=== PATIENT | female | born 1975 ===

== ENCOUNTER 2017-08-23 00:17 | Emergency (ER) | payer MEDICAID ==
[2017-08-23 00:17] VITALS: BMI 18.3
[2017-08-23 00:28] VITALS: RESP 20; O2SAT 98
[2017-08-23 01:54] LABS: RBC URINE 15 /hpf (0-3); URINE BACTERIA FEW (<OCC); URINE BILIRUBIN NEGATIVE (NEGATIVE); URINE COLOR Yellow (YELLOW); URINE GLUCOSE (UA) NORMAL (Normal); URINE KETONE NEGATIVE (NEGATIVE); URINE LEUKOCYTE ESTERASE 2+ Leu/uL (Negative); URINE PROTEIN NEGATIVE (NEGATIVE); URINE UROBILINOGEN NORMAL mg/dL (0.2-1.0); WBC URINE 19 /hpf (0-5)
[2017-08-23 01:55] LABS: URINE BLOOD 1+ (NEGATIVE)
[2017-08-23] MEDS ORDERED: Aluminum Hydroxide/Magnesium Hydroxide Susp (30 mL) PO STA (01:57)
[2017-08-23] MEDS ORDERED: Belladonna-Phenobarbital PO STA (01:57)
[2017-08-23] MEDS ORDERED: Lactated Ringer's 1,000 ML IV ONE (01:58)
--- NOTE | 2017-08-23 02:08 | C.PDOC ---
History Of Present Illness 41 year old female presents to the ER with a complaint of 3-4 hours of diffuse abdominal pain that is worse to the RUQ, associated with nausea and 2 episodes of yellow bilious vomiting. Denies fever or chills.no diarrhea. no recent previous episodes. Chief Complaint (Nursing): Abdominal Pain History Per: Patient History/Exam Limitations: no limitations Onset/Duration Of Symptoms: Hrs Current Symptoms Are (Timing): Still Present Severity: Moderate Pain Scale Rating Of: 4 Location Of Pain/Discomfort: Diffuse, RUQ (Greater) Radiation Of Pain To:: None Quality Of Discomfort: Unable To Describe Associated Symptoms: Nausea, Vomiting. denies: Fever, Chills Exacerbating Factors: None Alleviating Factors: None Recent travel outside of the [place]: No Abnormal Vaginal Bleeding: No Past Medical History Reviewed: Historical Data, Nursing Documentation, Vital Signs Vital Signs: Last Vital Signs Temp 97.7 F 08/23/17 03:39 Pulse 77 08/23/17 03:39 Resp 20 08/23/17 03:39 BP 98/61 L 08/23/17 03:39 Pulse Ox 98 08/23/17 04:00 - Medical History PMH: No Chronic Diseases Surgical History: No Surg Hx Family History: States: Unknown Family Hx - Social History Hx Tobacco Use: No Hx Alcohol Use: No Hx Substance Use: No - Immunization History Hx Tetanus Toxoid Vaccination: No Hx Influenza Vaccination: No Hx Pneumococcal Vaccination: No Review Of Systems Constitutional: Negative for: Fever, Chills, Weakness, Malaise, Weight loss ENT: Negative for: Ear Pain, Nose Congestion Cardiovascular: Negative for: Chest Pain, Palpitations, Edema, Light Headedness Respiratory: Negative for: Cough, Shortness of Breath, Hemoptysis, SOB with Excertion, Pleuritic Pain, Sputum Gastrointestinal: Positive for: Nausea, Vomiting, Abdominal Pain. Negative for : Diarrhea, Constipation, Melena, Hematochezia, Hematemesis Genitourinary: Negative for: Dysuria, Frequency, Incontinence, Hematuria, Vaginal Discharge, Vaginal Bleeding, Pelvic Pain Skin: Negative for: Rash Neurological: Negative for: Weakness, Confusion Physical Exam - Physical Exam Appears: Non-toxic, Other (Uncomfortable) Skin: Normal Color, Warm, Dry Head: Atraumatic, Normacephalic Eye(s): bilateral: Normal Inspection Ear(s): Bilateral: Normal Nose: Normal Oral Mucosa: Moist Tongue: Normal Appearing Lips: Normal Appearing Throat: Normal Neck: Normal Chest: Symmetrical, No Tenderness Cardiovascular: Rhythm Regular Respiratory: Normal Breath Sounds, No Rales, No Rhonchi, No Wheezing Gastrointestinal/Abdominal: Soft, Tenderness (RUQ), No Guarding, No Rebound Neurological/Psych: Oriented x3, Normal Speech ED Course And Treatment - Laboratory Results Result Diagrams: 08/23/17 02:08 08/23/17 02:08 O2 Sat by Pulse Oximetry: 98 (Room air) Pulse Ox Interpretation: Normal Medical Decision Making Medical Decision Making: Plan: * CMP * Lipase * CBC * Obstructive series * Upreg * UA * * lactated ringers * Maalox * Morphine * Protonix * Toradol * Zofran * * * on re-exam pt feels much better. Bedisde us of the gall bladder is unremarkable/ normal wall and no stones/ non tender. * obstructive series - non specific bowel gas pattern. Pt will be treated for a uti. Disposition Doctor Will See Patient In The: Office Counseled Patient/Family Regarding: Diagnosis - Disposition Disposition: HOME/ ROUTINE Disposition Time: 03:56 Condition: STABLE Prescriptions: Nitrofurantoin Macrocrystals [Macrobid] 100 mg PO BID 3 Days #6 cap Instructions: Acute Abdominal Pain (ED) Forms: [facility] (Malawian), Work Excuse - Clinical Impression Clinical Impression: Abdominal pain, UTI (urinary tract infection) - Scribe Statement The provider has reviewed the documentation as recorded by the Scribe Leonard Monroe All medical record entries made by the Scribe were at my direction and personally dictated by me. I have reviewed the chart and agree that the record accurately reflects my personal performance of the history, physical exam, medical decision making, and the department course for this patient. I have also personally directed, reviewed, and agree with the discharge instructions and disposition.
[2017-08-23 02:10] LABS: BASO % 0.3 % (0.0-2.0); EOS # 0.1 K/uL (0.0-0.7); EOS % 0.5 % (0.0-4.0); HEMATOCRIT 36.4 % (34.0-47.0); LYMPH # 2.4 K/uL (1.0-4.3); LYMPH % 22.8 % (20.0-40.0); MEAN CELL VOLUME 85.8 fL (81.0-99.0); MEAN CORPUSCULAR HEMOGLOBIN 28.6 pg (27.0-31.0); MEAN CORPUSCULAR HGB CONC 33.4 g/dL (33.0-37.0); MEAN PLATELET VOLUME 8.6 fL (7.2-11.7); MONO # 0.6 K/uL (0.0-0.8); MONO % 5.6 % (0.0-10.0); RED CELL DISTRIBUTION WIDTH 12.6 % (11.5-14.5); WHITE BLOOD COUNT 10.7 K/uL (4.8-10.8)
[2017-08-23] MEDS ORDERED: Belladonna-Phenobarbital ONE (02:14)
[2017-08-23] MEDS ORDERED: Morphine 4 MG/ML VIAL ONE (02:14)
[2017-08-23] MEDS ORDERED: Aluminum Hydroxide/Magnesium Hydroxide Susp (30 mL) ONE (02:14)
[2017-08-23 02:24] LABS: BILIRUBIN,TOTAL 0.4 mg/dL (0.2-1.3); CALCIUM 8.4 mg/dl (8.6-10.4); GFR AFRICAN-AMERICAN > 60; GLUCOSE,RANDOM 104 mg/dL (65-105); TOTAL PROTEIN 8.2 g/dL (6.3-8.3)
[2017-08-23 02:25] LABS: ALKALINE PHOSPHATASE 38 U/L (38-126); ALT/SGPT 44 U/L (9-52); AST/SGOT 25 U/L (14-36); BLOOD UREA NITROGEN 10 mg/dL (7-17); CARBON DIOXIDE 23 mmol/L (22-30); CHLORIDE 105 mmol/L (98-107); SODIUM 138 mmol/L (132-148)
[2017-08-23 03:40] VITALS: BP 98/61; PULSE 77; TEMP 97.7
--- NOTE | 2017-08-23 08:48 | RAD ---
PROCEDURE: Radiographs of the chest and abdomen (obstructive series) HISTORY: abd pain COMPARISON: No prior. TECHNIQUE: AP radiograph of the chest, with upright and supine radiographs of the abdomen. FINDINGS: CHEST: Lungs: Clear. Cardiovascular: Normal size heart. No pulmonary vascular congestion. Pleura: No pleural fluid. No pneumothorax. Other findings: None. ABDOMEN AND PELVIS: Bowel: Few small air fluid levels within nondilated large and small bowel loops -nonspecific. No evidence of mechanical obstruction. Free air: None. Bones: Unremarkable. Other findings: None. IMPRESSION: Unremarkable radiographs of chest . No evidence of mechanical bowel obstruction. Few small air fluid levels within nondilated large and small bowel loops -nonspecific.
== END 2017-08-23 04:14 | disposition home or self-care (01) ==
LOC: C.ER 00:17
DX: N39.0 Urinary tract infection, site not specified (principal); R10.11 Right upper quadrant pain
CPT/HCPCS: 74022; 80053; 81001; 83690; 84703; 85025; 87086; 96361; 96374; 96375; 99283; C9113; J1885; J2270; J2405; J7120

== ENCOUNTER 2017-11-26 22:17 | Emergency (ER) | payer MEDICAID ==
[2017-11-26 22:18] VITALS: BMI 18.3
[2017-11-26 22:29] VITALS: BP 108/70; PULSE 86; RESP 18; TEMP 97.9; O2SAT 100
--- NOTE | 2017-11-26 22:54 | C.PDOC ---
History Of Present Illness Patient c/o dry cough for 2 weeks associated with left preauricular swelling. patient sts she went to her PMD 5 days ago and was given Rx for cough syrup and Augmentin po. However cough is not getting better. Patient sts that she has similar symptoms of URI, cough and left preauricular swelling almost every year for many years and she usually gets better after po antibiotics. Time Seen by Provider: 11/26/17 22:35 Chief Complaint (Nursing): Cough, Cold, Congestion History Per: Patient History/Exam Limitations: no limitations Onset/Duration Of Symptoms: Other (2 weeks) Current Symptoms Are (Timing): Still Present Severity: Moderate Pain Scale Rating Of: 5 Reports Similar Symptoms Of: almost every year Past Medical History Reviewed: Historical Data, Nursing Documentation, Vital Signs Vital Signs: Last Vital Signs Temp 97.9 F 11/26/17 22:24 Pulse 86 11/26/17 22:24 Resp 18 11/26/17 22:24 BP 108/70 11/26/17 22:24 Pulse Ox 100 11/27/17 00:26 - Medical History PMH: Denies: Chronic Kidney Disease Family History: States: Unknown Family Hx - Social History Hx Tobacco Use: No Hx Alcohol Use: No Hx Substance Use: No - Immunization History Hx Tetanus Toxoid Vaccination: No Hx Influenza Vaccination: No Hx Pneumococcal Vaccination: No Review Of Systems Except As Marked, All Systems Reviewed And Found Negative. Physical Exam - Physical Exam Appears: Well, Non-toxic, No Acute Distress Skin: Normal Color, No Rash Head: Atraumatic, Normacephalic Eye(s): bilateral: Normal Inspection Ear(s): Left: Other (preauricular swelling and tenderness, no erythema), Bilateral: Normal Nose: Normal, No Flaring, No Discharge Oral Mucosa: Moist, No Drooling Tongue: No Swelling, No Lesions Lips: Normal Appearing, No Swelling, No Lesions Gingiva: Normal Appearing, No Ulceration, No Swelling Throat: No Erythema, No Exudate, No Drooling Neck: Normal, Normal ROM, Supple Lymphatic: No Adenopathy Chest: No Tenderness Cardiovascular: Rhythm Regular Respiratory: Normal Breath Sounds, No Accessory Muscle Use, No Rales, No Rhonchi , No Wheezing Gastrointestinal/Abdominal: Normal Exam, Soft, No Tenderness Extremity: Normal ROM, No Tenderness Neurological/Psych: Oriented x3, Normal Speech, Normal Cognition ED Course And Treatment O2 Sat by Pulse Oximetry: 100 - Radiology CXR: Interpreted by Me CXR Interpretation: Yes: No Acute Disease Progress Note: Patient was d/c neelam cem cough meds and Tramadol with PMD and ENT follow up. Disposition - Disposition Referrals: Shaik De Oliveira MD [Staff Provider] - Dejon Allen MD [Staff Provider] - Disposition: HOME/ ROUTINE Disposition Time: 00:21 Condition: STABLE Additional Instructions: Follow up with your PMD and ENT specialist. Return to ED if feel worse. Prescriptions: Promethazine HCl/Codeine [Prometh-Codein 6.25-10 mg/5 ml] 5 ml PO .Q4-6H #150 ml Benzonatate [Tessalon Perles] 2 tab PO TID #60 sgl traMADol [Ultram] 50 mg PO Q6 #30 tab Instructions: Parotitis, Acute Bronchitis, Adult (DC) Forms: [facility] (Arabic) - Clinical Impression Clinical Impression: Parotitis, acute, Bronchitis
--- NOTE | 2017-11-27 09:04 | RAD ---
HISTORY: cough x 2 wks, UCG neg COMPARISON: 09/28/2016 TECHNIQUE: Chest PA and lateral FINDINGS: LUNGS: No active pulmonary disease. PLEURA: No significant pleural effusion identified. No pneumothorax apparent. CARDIOVASCULAR: Normal. OSSEOUS STRUCTURES: No significant abnormalities. VISUALIZED UPPER ABDOMEN: Normal. OTHER FINDINGS: None. IMPRESSION: No active disease.
== END 2017-11-27 00:35 | disposition home or self-care (01) ==
LOC: C.ER 22:17
DX: J40 Bronchitis, not specified as acute or chronic (principal); K11.21 Acute sialoadenitis

== ENCOUNTER 2019-02-01 23:44 | Emergency (ER) | payer MEDICAID | END 2019-02-02 00:34 | disposition home or self-care (01) | LOC: C.ER 23:44 ==